=== PATIENT | male | born 1945 | race Caucasian/White ===

== ENCOUNTER → 2020-04-20 12:31 | Outpatient (BNVA) | payer MEDICARE, MEDICAID, SELFPAY | PROVIDERS: Family Provider Nurse Practitioner Family; Visit Provider Internal Medicine | DX: Z20.828 Contact with and (suspected) exposure to other viral communicable diseases (principal) | CPT/HCPCS: 87635 ==

== ENCOUNTER 2020-04-25 07:48 | Day surgery (SDC) | payer MEDICARE, MEDICAID, SELFPAY ==
[2020-04-21 09:06] VITALS: BMI 34.7
[2020-04-25 08:13] VITALS: BP 132/70; PULSE 70; RESP 18; TEMP 37.1; O2SAT 96
[2020-04-25] MEDS: sodium chloride 0.9% 1,000 ML 30 ML IV (08:21)
--- NOTE | 2020-04-25 08:38 | P.ANESASSM_ITS ---
Pre-Anesthetic Assessment Pre-Anesthetic Assessment: Height/Weight: Height 1.68 m Weight 97.522 kg Temp Pulse Resp BP Pulse Ox 98.8 F 70 18 132/70 96 04/25/20 08:13 04/25/20 08:13 04/25/20 08:13 04/25/20 08:13 04/25/20 08:13 Preop Diagnosis: epigastric pain Proposed Procedure: Operation Date: 04/25/20 09:00 Proposed Procedures p EGD [id number]/ R10.13(Not Applicable) - Theodore Hernandez MD s Colonoscopy(Not Applicable) - Theodore Hernandez MD Familial anesthetic complications: No hx Was Beta Thalia taken within 24 hours: N/A Last intake: Intake Last Liquid Date 04/24/20 Last Liquid Time 22:00 Last Solid Date 04/23/20 Last Solid Time 20:00 Social: Social History: No alcohol and No tobacco Exam: Pre-Anes Outpt Exam: alert, oriented x 3, clear to auscultation bilat erally and regular rate & rhythm Airway: Cervical ROM: WNL MP: 3 Dentition: Partials CV/HEM: CV/HEM: HTN GI: GI: GERD Anesthetic Plan: ASA status: 2 Anesthesia: MAC Risk of > 500 ml blood loss (7ml/kg in children): No Meds/Allergies Current Medications: Current Medications Generic Name Dose Route Start Last Admin Trade Name Freq PRN Reason Stop Dose Admin Sodium Chloride 1,000 mls @ 30 ml s/hr 04/25/20 08:00 04/25/20 08:21 Sodium Chloride 0.9% IV 04/26/20 07:59 30 mls/hr .Q24H MIKE Administration PFSH Anesthesia PFSH: Medical History (Updated 04/20/20 @ 11:51 by Theodore Hernandez MD) Erectile dysfunction Gastro-esophageal reflux Insomnia, unspecified Social History (Updated 04/20/20 @ 11:44 by QUINN Porras) Smoking and tobacco status: never smoked Alcohol intake: never Adopted: No Caregiver/support person: No Lives independently: No Household members: spouse History of recent travel: No Sexually active: Yes Current gender identity: Male Data Anesthesia Cardiac Studies: No Data to Display
--- NOTE | 2020-04-25 09:29 | W.PM.OPSUD ---
Surgery/Procedure H&P Update DATE OF PROCEDURE: April 25, 2020 DATE H&P PERFORMED: 04/20/20 PREOP DIAGNOSIS: epigastric pain PLANNED PROCEDURE: Operation Date: 04/25/20 09:00 Proposed Procedures p EGD [id number]/ R10.13(Not Applicable) - Theodore Hernandez MD s Colonoscopy(Not Applicable) - Theodore Hernandez MD
[2020-04-25 09:57] VITALS: BP 108/62; PULSE 64; RESP 16; TEMP 36.1; O2SAT 96
[2020-04-25 10:20] VITALS: BP 110/75; PULSE 52; RESP 18; O2SAT 98
--- NOTE | 2020-04-25 10:40 | ANE.PACU2 ---
Inpatient post-anesthesia follow up: Airway intact: Yes Vital signs: Temperature 97 F Pulse Rate 52 Respiratory Rate 18 Blood Pressure 110/75 Pulse Oximetry 98 Oxygen Delivery Me thod Room Air Oxygen Flow Rate Fraction of Inspir ed Oxygen Hydration adequate: Yes Nausea and vomiting: No Pain level: 1 Mental status: Baseline
== END 2020-04-25 10:43 | disposition home or self-care (01) ==
PROVIDERS: PCP Registered Nurse; Visit Provider Internal Medicine
PROC: 0DJ08ZZ Inspection of Upper Intestinal Tract, Via Natural or Artificial Opening Endoscopic (ICD-10-PCS; CPT 43235; principal; 2020-04-25 09:00)
PROC: 0DJD8ZZ Inspection of Lower Intestinal Tract, Via Natural or Artificial Opening Endoscopic (ICD-10-PCS; CPT 45378; 2020-04-25 09:00)
DX: R10.13 Epigastric pain (principal); I10 Essential (primary) hypertension; K21.9 Gastro-esophageal reflux disease without esophagitis; Z79.82 Long term (current) use of aspirin
CPT/HCPCS: 12345; 43235; 45378; J2704; J7030

== ENCOUNTER 2020-04-27 07:13 | Outpatient (CLI) | payer MEDICARE, MEDICAID, SELFPAY ==
--- NOTE | 2020-04-27 07:45 | US_ITS ---
WS: [id number] RIGHT UPPER QUADRANT ULTRASOUND HISTORY: BLOATING EPIGASTRIC PAIN COMPARISON: None available. Liver: 17.4 cm in length. Mildly enlarged liver with coarsened echotexture and steatosis. No mass. Gallbladder: Normally distended gallbladder with no stones or wall thickening. CBD: 0.5 cm Pancreas: Normal size and echogenicity. Right kidney: 11.8 cm in length. Normal size and echogenicity. No hydronephrosis or mass. Aorta and IVC: Unremarkable abdominal aorta and IVC. No ascites. US/US gall bladder [id number] IMPRESSION: 1. Mild hepatomegaly and hepatic steatosis. 2. No cholelithiasis but the gallbladder is difficult to visualize due to body habitus. 3. No bile duct dilatation.
== END 2020-04-27 07:14 | disposition home or self-care (01) ==
LOC: US 07:18
PROVIDERS: PCP Registered Nurse; Visit Provider Internal Medicine
DX: R10.13 Epigastric pain (principal); R14.0 Abdominal distension (gaseous); R16.0 Hepatomegaly, not elsewhere classified; K76.0 Fatty (change of) liver, not elsewhere classified
CPT/HCPCS: 76705

== ENCOUNTER → 2020-06-22 11:27 | Outpatient (BNVA) | payer MEDICARE, MEDICAID, SELFPAY | PROVIDERS: PCP Registered Nurse; Visit Provider Registered Nurse | DX: G47.00 Insomnia, unspecified (principal); I10 Essential (primary) hypertension; E78.5 Hyperlipidemia, unspecified | CPT/HCPCS: 80053; 80061; 85025 ==

== ENCOUNTER → 2022-04-02 14:03 | Outpatient (BNVA) | payer MEDICARE, MEDICAID, SELFPAY | PROVIDERS: PCP Registered Nurse; Visit Provider Registered Nurse | DX: I10 Essential (primary) hypertension (principal); G47.00 Insomnia, unspecified; F51.01 Primary insomnia; F41.9 Anxiety disorder, unspecified | CPT/HCPCS: 80053; 80061; 85025 ==